=== PATIENT | male | born 1955 | race Caucasian/White ===

== ENCOUNTER 2020-06-10 17:22 | Emergency (ER) | payer BC, MEDICARE, OTHER ==
--- NOTE | 2020-06-10 17:39 | EDM.PDOC ---
ED HPI GENERAL MEDICAL PROBLEM - General Chief Complaint: Upper Extremity Injury/Pain Stated Complaint: LEFT HAND FINGER INJURY Time Seen by Provider: 06/10/20 17:25 Source of Information: Reports: Patient History Limitations: Reports: No Limitations - History of Present Illness INITIAL COMMENTS - FREE TEXT/NARRATIVE: HISTORY AND PHYSICAL: History of present illness: Patient is a 65-year-old male who presents to the emergency room with complaints of a laceration to the left index finger from a pocket knife he was using. Unsure of how he cut his finger. He is unsure of his tetanus status. Denies any other bodily injury. Offers no systemic complaints. Review of systems: As per history of present illness and below otherwise all systems reviewed and negative. Past medical history: As per history of present illness and as reviewed below otherwise noncontributory. Surgical history: As per history of present illness and as reviewed below otherwise noncontributory. Social history: See social history for further information Family history: As per history of present illness and as reviewed below otherwise noncontributory. Physical exam: General: Well developed and well nourished. Alert and orientated x 3. Nontoxic in appearance and in no acute distress. Vital signs are stable and have been reviewed by me. Nursing notes were reviewed. HEENT: Atraumatic, normocephalic, pupils equal and reactive bilaterally, negative for conjunctival pallor or scleral icterus, mucous membranes moist, hard of hearing, trachea midline. No drooling or trismus noted. No meningeal signs. No hot potato voice noted. Skin: 1.2 cm C-shaped laceration to the left distal index finger. Otherwise skin is intact, warm, dry. No lesions or rashes noted. Hematologic: No petechiae or purpra. Mucosa appropriate color and normal nail bed color and refill. Extremities: Atraumatic, moves all extremities per self without difficulty or deficits, negative for cords or calf pain. Neurovascular unremarkable. Neuro: Awake, alert, oriented. Cranial nerves II through XII unremarkable. Cerebellum unremarkable. Motor and sensory unremarkable throughout. Exam nonfocal. Psychiatric: Mood and affect are appropriate. Normal thought process. Answering questions appropriately. Notes: 1% lidocaine was used to anesthetize the area. 4-0 nylon, #5 interrupted sutures were placed. Patient tolerated well. Bacitracin nonstick dressing was applied. I have spoken with the patient/caregiver and discussed today's findings, in addition to providing specific details for plan of care. Reasse ssment at the time of disposition demonstrates that the patient is in no acute distress. The patient has remained stable throughout the entire ED visit and is without objective evidence for acute process requiring urgent intervention or hospitalization. The patient is stable for discharge, counseling was provided and we discussed in great detail signs and symptoms that would prompt them to return to the Emergency Department. Medication, follow up and supportive care measures were reviewed and discussed. Voices understanding and is agreeable to plan of care. Denies any further questions or concerns at this time. Diagnostics: None Therapeutics: Lidocaine, wound care, tetanus, bacitracin Prescription: None Impression: Laceration Plan: 1. Keep the area clean and dry. Continue to monitor for signs of infection. Sutures to be removed in 6-8 days. 2. Tylenol and/or ibuprofen as needed for pain management. 3. Please follow-up with your primary care provider in the next 1-2 days. Return to the ED as needed and as discussed. Definitive disposition and diagnosis as appropriate pending reevaluation and review of above. - Related Data Allergies Allergy/AdvReac Type Severity Reaction Status Date / Time No Known Allergies Allergy Verified 06/10/20 17:54 Home Meds: Home Meds Sertraline HCl 150 mg PO DAILY 01/25/15 [History] risperiDONE [RisperiDAL] 1 tab PO BEDTIME 01/25/15 [History] Rosuvastatin [Crestor] 0 mg PO DAILY 06/13/15 [History] Benztropine Mesylate 1 mg PO DAILY 06/10/20 [History] Losartan [Cozaar] 100 mg PO DAILY 06/10/20 [History] Review of Systems - Review of Systems Review Of Systems: Comprehensive ROS is negative, except as noted in HPI. ED EXAM, GENERAL - Physical Exam Exam: See Below (See dictation) ED TRAUMA EXTREMITY PROCEDURES - Laceration/Wound Repair Left index finger Lac/Wound Length In cm: 1.2 Appearance: Subcutaneous, Linear, Irregular Distal NVT: Neuro & Vascular Intact, No Tendon Injury Anesthetic Type: Local Local Anesthetic Volume: 2cc Skin Prep: Chlorhexidine (Hibiciens), Saline Saline Irrigation (cc's): 250 Exploration/Debridement/Repair: Wound Explored, In a Bloodless Field, Explored to Base, No Foreign Material Found Closed With: Sutures Suture Size: 4-0 # of Sutures: 5 Suture Type: Nylon, Interrupted, Simple Drain Placement: No Sterile Dressing Applied: Provider Tetanus Status Addressed: Yes Complications: No Course - Vital Signs Last Recorded V/S: Last Vital Signs Temp 97.9 F 06/10/20 17:57 Pulse 74 06/10/20 17:57 Resp 16 06/10/20 17:57 BP 135/63 06/10/20 17:57 Pulse Ox 95 06/10/20 17:57 - Orders/Labs/Meds Meds: Medications Discontinued Medications Generic Name Dose Route Start Last Admin Trade Name Brendon PRN Reason Stop Dose Admin Bacitracin 1 dose 06/10/20 17:57 06/10/20 18:08 Bacitracin Oint 1 Gm TOP 06/10/20 17:58 1 dose ONETIME ONE Administration Diphtheria/Tetanus/Acell Pertussis 0.5 ml 06/10/20 17:57 06/10/20 18:08 Adacel IM 06/10/20 17:58 0.5 ml .ONCE ONE Administration Lidocaine HCl 2 ml 06/10/20 17:57 06/10/20 18:08 Xylocaine-Mpf 1% INJECT 06/10/20 17:58 2 ml ONETIME ONE Administration Departure - Departure Time of Disposition: 18:19 Disposition: Home, Self-Care 01 Clinical Impression: Laceration - Discharge Information Instructions: Laceration Care, Adult, [id number] Referrals: Morteza Shepard MD [Primary Care Provider] - Forms: ED Department Discharge, ED Return to Work/School Form Additional Instructions: The following information is given to patients seen in the emergency department who are being discharged to home. This information is to outline your options for follow-up care. We provide all patients seen in our emergency department with a follow-up referral. The need for follow-up, as well as the timing and circumstances, are variable depending upon the specifics of your emergency department visit. If you don't have a primary care physician on staff, we will provide you with a referral. We always advise you to contact your personal physician following an emergency department visit to inform them of the circumstance of the visit and for follow-up with them and/or the need for any referrals to a consulting specialist. The emergency department will also refer you to a specialist when appropriate. This referral assures that you have the opportunity for follow-up care with a specialist. All of these measure are taken in an effort to provide you with optimal care, which includes your follow-up. Under all circumstances we always encourage you to contact your private tiffanie gomesan who remains a resource for coordinating your care. When calling for follow-up care, please make the office aware that this follow-up is from your recent emergency room visit. If for any reason you are refused follow-up, please contact the [facility] at and asked to speak to the emergency department charge nurse. [facility] [address] [place] [address] [facility] [address] [place] [id number] Thank you for choosing the [facility] emergency department in [place] for your medical needs today. It was a pleasure caring for you. Today you were seen in the emergency department for Laceration. 1. Keep the area clean and dry. Continue to monitor for signs of infection. Sutures to be removed in 6-8 days. 2. Tylenol and/or ibuprofen as needed for pain management. 3. Please follow-up with your primary care provider in the next 1-2 days. Return to the ED as needed and as discussed. Sepsis Event Note (ED) - Focused Exam Vital Signs: Vital Signs Temp Pulse Resp BP Pulse Ox 06/10/20 17:57 97.9 F 74 16 135/63 95
[2020-06-10] MEDS ORDERED: Bacitracin Oint 1 GM U/D Packet TOP ONE (17:57)
[2020-06-10] MEDS ORDERED: Diphtheria,Pertussis(Acell),Tetanus Vaccine 0.5 ML Syringe IM ONE (17:57)
[2020-06-10] MEDS ORDERED: Lidocaine 1% PF 2 ML SDV INJECT ONE (17:57)
[2020-06-10 18:00] VITALS: BP 135/63; PULSE 74
== END 2020-06-10 18:34 | disposition home or self-care (01) ==
LOC: MW.ED 17:22
DX: S61.211A Laceration without foreign body of left index finger without damage to nail, initial encounter (principal); Z23 Encounter for immunization; W26.0XXA Contact with knife, initial encounter
CPT/HCPCS: 12001; 90471; 90715; 99282; J2001

== ENCOUNTER 2022-04-13 09:20 | Emergency (ER) | payer MEDICARE, OTHER ==
[2022-04-13] MEDS ORDERED: Sodium Chloride 0.9% 10 ML Syringe FLUSH PRN (11:32)
[2022-04-13] MEDS ORDERED: Sodium Chloride 0.9% 2.5 ML Syringe FLUSH PRN (11:32)
[2022-04-13] MEDS ORDERED: Ondansetron 4 MG/2 ML SDV IVPUSH ONE (11:54)
[2022-04-13] MEDS ORDERED: Ketorolac 30 MG/ML SDV IVPUSH ONE (11:54)
[2022-04-13] MEDS ORDERED: Morphine 4 MG/ML VIAL IVPUSH ONE (11:54)
[2022-04-13 12:21] LABS: CARBON DIOXIDE,CO2 29.9 mmol/L (21.0-32.0); POTASSIUM,K 3.5 mmol/L (3.5-5.1)
[2022-04-14 07:40] VITALS: BP 120/73; PULSE 71
== END 2022-04-13 15:02 | disposition home or self-care (01) ==
LOC: MW.ED 09:20
DX: R10.31 Right lower quadrant pain (principal); M62.838 Other muscle spasm; I10 Essential (primary) hypertension; Z79.899 Other long term (current) drug therapy; Z20.822 Contact with and (suspected) exposure to COVID-19
CPT/HCPCS: 36415; 74177; 80053; 81003; 83690; 85025; 96374; 96375; 99284; J1885; J2270; J2405; J3490; U0002

== ENCOUNTER 2022-11-09 14:01 | Emergency (ER) | payer MEDICARE, OTHER ==
[2022-11-09] MEDS ORDERED: Aspirin 81 MG Tab.Chew PO ONE (14:07)
[2022-11-09] MEDS ORDERED: Alum Hydro/Mag Hydro/Simeth XS 15 ML, Lidocaine 2% 5 ML PO ONE ×2 (14:08)
[2022-11-09] MEDS ORDERED: Ondansetron 4 MG Tab.DIS PO ONE (14:08)
[2022-11-09] MEDS ORDERED: Nitroglycerin 0.4 MG Tab.SL SL ONE (14:38)
[2022-11-09 15:14] LABS: CORONAVIRUS COVID-19 NAA NEGATIVE (NEGATIVE); INFLUENZA A NAA NEGATIVE (NEGATIVE); INFLUENZA B NAA NEGATIVE (NEGATIVE)
[2022-11-09 15:16] LABS: CARBON DIOXIDE,CO2 25.9 mmol/L (21.0-32.0); POTASSIUM,K 3.4 mmol/L (3.5-5.1)
[2022-11-09] MEDS ORDERED: Enoxaparin 100 MG/1 ML Syringe SUBCUT ONE (15:22)
[2022-11-09 17:46] VITALS: BP 138/77; PULSE 75
== END 2022-11-09 18:13 ==
LOC: MW.ED 14:01
DX: I21.4 Non-ST elevation (NSTEMI) myocardial infarction (principal); I10 Essential (primary) hypertension; E78.5 Hyperlipidemia, unspecified; Z79.899 Other long term (current) drug therapy; Z20.822 Contact with and (suspected) exposure to COVID-19
CPT/HCPCS: 0240U; 36415; 71045; 80053; 83690; 83735; 83880; 84484; 85025; 85610; 85730; 93005; 99285; A9270; J1650; 93010; 99284

== ENCOUNTER 2025-05-18 07:33 | Day surgery (SDC) | payer MEDICARE ==
[2025-05-18] MEDS: Lactated Ringers 1,000 ML IV SCH (08:27)
[2025-05-18] MEDS ORDERED: propofoL 500 MG/50 ML 50 ML ONE (09:16)
[2025-05-18] MEDS ORDERED: Lactated Ringers 1,000 ML IV SCH (09:30)
[2025-05-18 12:48] VITALS: BP 124/62; PULSE 70
== END 2025-05-18 10:16 | disposition home or self-care (01) ==
LOC: MW.SDS 07:33
PROVIDERS: ATTEND Surgery
DX: Z12.11 Encounter for screening for malignant neoplasm of colon (principal); K57.30 Diverticulosis of large intestine without perforation or abscess without bleeding; R19.5 Other fecal abnormalities; I25.10 Atherosclerotic heart disease of native coronary artery without angina pectoris; I11.0 Hypertensive heart disease with heart failure; I50.30 Unspecified diastolic (congestive) heart failure; E78.00 Pure hypercholesterolemia, unspecified; Z87.891 Personal history of nicotine dependence; Z79.82 Long term (current) use of aspirin; Z79.899 Other long term (current) drug therapy
CPT/HCPCS: 45378; J1596; J2704; J7120; 00811; 99100